=== PATIENT | male | born 2005 | race Hispanic/Latino ===

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

== ENCOUNTER 2024-11-27 05:18 | Emergency (ER) | payer SELFPAY ==
[~2024-11-27] VITALS: Ht 170.2 cm; Wt 63.5 kg
[2024-11-27 05:20] VITALS: PULSE 72; RESP 18; TEMP 98.1
[2024-11-27] MEDS: KETOROLAC TROMETHAMINE 30 MG/ML VIAL IM STA (05:53)
[2024-11-27] MEDS ORDERED: METHOCARBAMOL750 MG PO (06:25)
[2024-11-27 06:39] VITALS: BP 131/74; PULSE 82; RESP 18; O2SAT 99
== END 2024-11-27 06:41 | disposition home or self-care (01) ==
LOC: ER 05:23
DX: M54.2 Cervicalgia (principal); M62.838 Other muscle spasm; M53.82 Other specified dorsopathies, cervical region
CPT/HCPCS: 99283; J1885